=== PATIENT | male | born 1955 | race Caucasian/White ===

== ENCOUNTER 2021-11-16 08:17 | Inpatient (IN) | payer MEDICARE, BC ==
[~2021-11-16] VITALS: Ht 172.7 cm; Wt 108.9 kg
[2021-11-16] VITALS (9 sets, daily range): BP systolic 107–130; BP diastolic 70–79
[2021-11-16] MEDS ORDERED: ASPIRIN 81MG TABLET PO ONE (08:45)
[2021-11-16] MEDS ORDERED: NICARDIPINE 100MCG/ML 10ML VIAL (CATH LAB) IV ONE (09:00)
[2021-11-16] MEDS ORDERED: NITROGLYCERIN 50MCG/ML 10ML VIAL (CATH LAB) IV ONE (09:00)
[2021-11-16] MEDS ORDERED: SODIUM CHLORIDE 0.45% 1,000 ML IV ONE (09:15)
[2021-11-16] MEDS ORDERED: ASPI-986 PO (09:16)
[2021-11-16 09:21] LABS: BASOPHILS % 0.7 % (0.0-2.0); EOSINOPHILS % 3.4 % (0.0-5.0); HEMATOCRIT. 52.9 % (42.0-52.0); LYMPHOCYTES % 27.7 % (20.0-50.0); MEAN CORPUSCULAR HEMOGLOBIN 30.9 pg (28.0-32.0); MEAN CORPUSCULAR VOLUME 90.8 fL (80.0-94.0); NEUTROPHILS % 55.2 % (40.0-76.0); PLATELET 264 x1000/uL (130-400); RED BLOOD CELL COUNT 5.82 mill/uL (4.7-6.1); RED CELL DISTRIBUTION WIDTH 14.4 % (11.6-14.6)
[2021-11-16] MEDS ORDERED: TRIC160 PO (09:22)
[2021-11-16] MEDS ORDERED: LOSA-20 PO (09:22)
[2021-11-16] MEDS ORDERED: OMEP20CA14 PO (09:22)
[2021-11-16] MEDS ORDERED: METO-385 PO (09:22)
[2021-11-16] MEDS ORDERED: ATOR20TA65 PO (09:22)
[2021-11-16 09:31] LABS: INR 1.1; PARTIAL THROMBOPLASTIN TIME 28.8 sec (23.4-31.0); PROTHROMBIN TIME 11.9 sec (9.6-11.0)
[2021-11-16 09:54] LABS: CHLORIDE 103 mEq/L (98-107)
[2021-11-16] MEDS ORDERED: IODIXANOL 320MG/ML 100 ML BOTTLE IV ONE ×2 (10:09→10:44)
[2021-11-16] MEDS ORDERED: LIDOCAINE HCL/PF 1% 10 MG/ML 5ML VIAL ONE (10:09)
[2021-11-16] MEDS ORDERED: HEPARIN SODIUM 1,000 UNIT/1ML VIAL IV ONE (10:09)
[2021-11-16] MEDS ORDERED: MIDAZOLAM HCL 2 MG/2 ML VIAL ONE (10:10)
[2021-11-16] MEDS ORDERED: FENTANYL CITRATE/PF 50MCG/ML 2ML VIAL ONE (10:10)
== END 2021-11-16 20:45 | disposition home or self-care (01) | DRG 287 ==
LOC: ER 08:17 → 3WST 10:18 → ENRESERV 11:37
PROVIDERS: ADMIT Specialist; ATTEND Specialist
PROC: 4A023N7 Measurement of Cardiac Sampling and Pressure, Left Heart, Percutaneous Approach (ICD-10-PCS; principal; 2021-11-16)
PROC: B211YZZ Fluoroscopy of Multiple Coronary Arteries using Other Contrast (ICD-10-PCS; 2021-11-16)
DX: I25.10 Atherosclerotic heart disease of native coronary artery without angina pectoris (principal); I10 Essential (primary) hypertension; E78.5 Hyperlipidemia, unspecified; I45.10 Unspecified right bundle-branch block; K21.9 Gastro-esophageal reflux disease without esophagitis; Z82.49 Family history of ischemic heart disease and other diseases of the circulatory system; Z20.822 Contact with and (suspected) exposure to COVID-19; G47.33 Obstructive sleep apnea (adult) (pediatric); Z79.82 Long term (current) use of aspirin; Z79.899 Other long term (current) drug therapy; I77.810 Thoracic aortic ectasia
CPT/HCPCS: 36415; 71045; 80053; 83880; 84484; 85025; 87426; 93005; 93458; 99291; C1769; C1887; C1893; J1644; J2250; J3010; J3490; Q9967